=== PATIENT | female | born 1960 | race Caucasian/White ===

== ENCOUNTER → 2022-03-17 11:06 | Outpatient (REF) | payer OTHER, SELFPAY | LOC: ANHLAB 11:06 | PROVIDERS: PCP Physician Assistant; Visit Provider Nurse Practitioner | DX: C44.311 Basal cell carcinoma of skin of nose (principal) | CPT/HCPCS: 88305 ==

== ENCOUNTER → 2022-05-30 08:00 | Outpatient (REF) | payer OTHER, SELFPAY | LOC: ANHLAB 08:00 | PROVIDERS: PCP Physician Assistant; Visit Provider Nurse Practitioner | DX: C44.311 Basal cell carcinoma of skin of nose (principal) | CPT/HCPCS: 88305; 88331 ==